=== PATIENT | female | born 1960 | race Caucasian/White ===

== ENCOUNTER → 2016-06-18 | Outpatient (CLI) | payer OTHER ==
[~2016-06-18] MED LIST: FLEXERIL10 MG PO; HYDROCODON-ACE1 EAC4 PO
== END | disposition disaster alternative care site (69) ==
LOC: GRAD 05-15 08:00
DX: M47.22 Other spondylosis with radiculopathy, cervical region (principal); M47.892 Other spondylosis, cervical region; M50.322 Other cervical disc degeneration at C5-C6 level